=== PATIENT | male | born 1995 | race Caucasian/White ===

== ENCOUNTER 2018-11-05 08:52 | Emergency (ER) | payer BC, MEDICAID, OTHER ==
--- NOTE | 2018-11-05 09:04 | ED ---
Lower Extremity - HPI Summary HPI Summary: Patient is a 23-year-old male who presents emergency department for a left ankle injury. 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 Patient able to ambulate with pain. Denies numbness, tingling or weakness. Symptoms are mild in severity. Walking makes symptoms worse. Rest makes symptoms better. - History of Current Complaint Chief Complaint: EDExtremityLower Stated Complaint: LEFT ANKLE PAIN PER PT Time Seen by Provider: 11/05/18 09:02 Hx Obtained From: Patient Pain Intensity: 5 - Allergies/Home Medications Allergies/Adverse Reactions: Allergies Allergy/AdvReac Type Severity Reaction Status Date / Time No Known Allergies Allergy Verified 11/05/18 09:00 Home Medications: Home Medications NK [No Home Medications Reported] 11/05/18 [History Confirmed 11/05/18] PMH/Surg Hx/FS Hx/Imm Hx Previously Healthy: Yes Infectious Disease History: No Infectious Disease History: Denies: Traveled Outside the [place] in Last 30 Days - Family History Known Family History: Positive: Non-Contributory - Social History Occupation: Student Lives: With Family Review of Systems Positive: Other - left ankle pain Skin: Negative All Other Systems Reviewed And Are Negative: Yes Physical Exam Triage Information Reviewed: Yes Vital Signs On Initial Exam: Initial Vitals Temp Pulse Resp BP Pulse Ox 98.0 F 108 20 154/88 96 11/05/18 08:53 11/05/18 08:53 11/05/18 08:53 11/05/18 08:53 11/05/18 08:53 Vital Signs Reviewed: Yes Appearance: Positive: Well-Appearing - Pt. sitting up in bed in NAD. Skin: Positive: Warm, Dry Head/Face: Positive: Normal Head/Face Inspection Eyes: Positive: Normal, EOMI Neck: Positive: Supple Musculoskeletal: Positive: Other - Pain on palpation to left medial malleolus. No obvious edema or deformity. Good pedal pulse. No pain or pain to base of 5th metatarsal. No breaks in skin. No proximal tib/fib or knee pain. Neurological: Positive: Normal, CN Intact II-III Psychiatric: Positive: Affect/Mood Appropriate Procedures - Splinting Left Lower Extremity Pre-Made Type: aircast Pre-Proc Neuro Vasc Exam: normal Post-Proc Neuro Vasc Exam: normal Diagnostics - Vital Signs Vital Signs Temp Pulse Resp BP Pulse Ox 11/05/18 08:53 98.0 F 108 20 154/88 96 - Laboratory Lab Statement: Any lab studies that have been ordered have been reviewed, and results considered in the medical decision making process. Lower Extremity Course/Dx - Course Course Of Treatment: Pt. presenting for ankle injury. Xray read per radiology: REPORT AND IMPRESSION: #. Negative for fracture or osteochondral lesion. Congruent ankle mortise and preserved. joint spaces. Os peroneum accessory ossicle noted. Mild nonfocal soft tissue swelling. Air splint placed for comfort. Advised ice and elevation. Anti-inflammatories for pain as directed. Advised to follow up with orthopedics or family doctor if symptoms do not improve within a week. Patient understands and agrees with plan. - Diagnoses Differential Diagnosis/HQI/PQRI: Positive: Arthritis, Dislocation, Fracture ( Closed), Sprain, Strain Provider Diagnoses: Ankle sprain Discharge - Sign-Out/Discharge Documenting (check all that apply): Patient Departure Patient Received Moderate/Deep Sedation with Procedure: No - Discharge Plan Condition: Good Disposition: HOME Patient Education Materials: Ankle Sprain (ED) Referrals: Jac Estevez MD [Medical Doctor] - Marisol Landeros MD [Medical Doctor] - Additional Instructions: Schedule a follow up appointment with orthopedics if pain persist Wear splint for comfort Ice and elevate Motrin 600mg every 6 hours as directed for pain x 1 week Return to ER if symptoms change or worsen - Billing Disposition and Condition Condition: GOOD Disposition: Home
[2018-11-05 10:44] VITALS: BP 136/75
== END 2018-11-05 10:43 | disposition home or self-care (01) ==
LOC: ED 08:52
DX: S93.402A Sprain of unspecified ligament of left ankle, initial encounter (principal); X50.9XXA Other and unspecified overexertion or strenuous movements or postures, initial encounter; Y92.9 Unspecified place or not applicable; Y93.B9 Activity, other involving muscle strengthening exercises
CPT/HCPCS: 99282